=== PATIENT | female | born 1945 | race American Indian/Alaskan Native ===

== ENCOUNTER 2016-04-23 14:46 | Emergency (ER) | payer MEDICARE ==
[2016-04-23 15:17] VITALS: BP 163/79
[2016-04-23] MEDS ORDERED: DECADRON IM ONE (15:47)
[2016-04-23] MEDS ORDERED: DUONEB 0.5 MG-3 MG/3 ML SOLN IH ONE (15:47)
--- NOTE | 2016-04-23 16:56 | Emergency Department Report ---
ED General Adult HPI - General Chief complaint: Upper Respiratory Infection Stated complaint: SOB Time Seen by Provider: 04/23/16 15:47 Source: patient Mode of arrival: Ambulatory Limitations: No Limitations - History of Present Illness Initial comments: 71 year old female presents with chest congestion, tightness, cough, wheezing for about 1-2 days. states that she is taking otc medication with no relief. states that she also has sinus congestion and pressure. denies fever, sore throat abdominal pain. - Related Data Previous Rx's Medication Instructions Recorded Last Taken Type ALBUTEROL Inhaler [ProAir HFA 2 puff IH QID PRN #1 inhalation 04/23/16 Unknown Rx Inhaler] Amoxicillin/K Clav Tab [Augmentin 1 tab PO Q12HR #20 tab 04/23/16 Unknown Rx 875 mg] Benzonatate [Tessalon Perles] 100 mg PO Q8HR #20 capsule 04/23/16 Unknown Rx Allergies Allergy/AdvReac Type Severity Reaction Status Date / Time iv dye Allergy Hives Uncoded 12/29/13 16:58 ED Review of Systems ROS: Stated complaint: SOB Other details as noted in HPI Constitutional: denies: chills, fever Eyes: denies: eye pain, eye discharge, vision change ENT: congestion. denies: ear pain, throat pain Respiratory: wheezing. denies: cough, shortness of breath Cardiovascular: denies: chest pain, palpitations Endocrine: no symptoms reported Gastrointestinal: denies: abdominal pain, nausea, diarrhea Genitourinary: denies: urgency, dysuria, discharge Musculoskeletal: denies: back pain, joint swelling, arthralgia Skin: denies: rash, lesions Neurological: denies: headache, weakness, paresthesias Psychiatric: denies: anxiety, depression Hematological/Lymphatic: denies: easy bleeding, easy bruising ED Past Medical Hx - Past Medical History Previous Medical History?: Yes Hx Hypertension: Yes Hx Diabetes: Yes Additional medical history: Venous stasis disease - Surgical History Past Surgical History?: Yes Additional Surgical History: back surgery x 2. bilateral shoulder surgery - Social History Smoking Status: Former Smoker Substance Use Type: Alcohol, Prescribed - Medications Home Medications: Home Medications Medication Instructions Recorded Confirmed Last Taken Type ALBUTEROL Inhaler [ProAir HFA 2 puff IH QID PRN #1 inhalation 04/23/16 Unknown Rx Inhaler] Amoxicillin/K Clav Tab [Augmentin 1 tab PO Q12HR #20 tab 04/23/16 Unknown Rx 875 mg] Benzonatate [Tessalon Perles] 100 mg PO Q8HR #20 capsule 04/23/16 Unknown Rx ED Physical Exam - General Limitations: No Limitations General appearance: alert, in no apparent distress - Head Head exam: Present: atraumatic, normocephalic - Eye Eye exam: Present: normal appearance, other - ENT ENT exam: Present: normal orophraynx, mucous membranes moist, other (red nasal mucosa) - Neck Neck exam: Present: normal inspection - Respiratory Respiratory exam: Present: normal lung sounds bilaterally, wheezes. Absent: respiratory distress, rales, rhonchi, stridor - Cardiovascular Cardiovascular Exam: Present: regular rate, normal rhythm. Absent: systolic murmur, diastolic murmur, rubs, gallop - GI/Abdominal GI/Abdominal exam: Present: soft, normal bowel sounds - Extremities Exam Extremities exam: Present: normal inspection - Back Exam Back exam: Present: normal inspection - Neurological Exam Neurological exam: Present: alert, oriented X3 - Psychiatric Psychiatric exam: Present: normal affect, normal mood - Skin Skin exam: Present: warm, dry, intact, normal color. Absent: rash ED Course Vital Signs 04/23/16 15:13 Temperature 99.1 F Pulse Rate 74 Respiratory 20 Rate Blood Pressure 163/79 O2 Sat by Pulse 99 Oximetry ED Medical Decision Making - Medical Decision Making patient resting comfortably. states relief with medication in the ED. VSS and NAD at this time, Critical care attestation.: If time is entered above; I have spent that time in minutes in the direct care of this critically ill patient, excluding procedure time. ED Disposition Clinical Impression: Upper respiratory infection, Acute asthmatic bronchitis Disposition: DISCHARGED TO HOME OR SELFCARE Is pt being admited?: No Does the pt Need Aspirin: No Condition: Good Instructions: Chronic Bronchitis (ED), Acute Bronchitis (ED) Additional Instructions: ED General Adult HPI - General Chief complaint: Upper Respiratory Infection Stated complaint: SOB Time Seen by Provider: 04/23/16 15:47 Source: patient Mode of arrival: Ambulatory Limitations: No Limitations - History of Present Illness Initial comments: 71 year old female presents with chest congestion, tightness, cough, wheezing for about 1-2 days. states that she is taking otc medication with no relief. states that she also has sinus congestion and pressure. denies fever, sore throat abdominal pain. - Related Data Allergies Allergy/AdvReac Type Severity Reaction Status Date / Time iv dye Allergy Hives Uncoded 12/29/13 16:58 ED Review of Systems ROS: Stated complaint: SOB Other details as noted in HPI Constitutional: denies: chills, fever Eyes: denies: eye pain, eye discharge, vision change ENT: congestion. denies: ear pain, throat pain Respiratory: wheezing. denies: cough, shortness of breath Cardiovascular: denies: chest pain, palpitations Endocrine: no symptoms reported Gastrointestinal: denies: abdominal pain, nausea, diarrhea Genitourinary: denies: urgency, dysuria, discharge Musculoskeletal: denies: back pain, joint swelling, arthralgia Skin: denies: rash, lesions Neurological: denies: headache, weakness, paresthesias Psychiatric: denies: anxiety, depression Hematological/Lymphatic: denies: easy bleeding, easy bruising ED Past Medical Hx - Past Medical History Previous Medical History?: Yes Hx Hypertension: Yes Hx Diabetes: Yes Additional medical history: Venous stasis disease - Surgical History Past Surgical History?: Yes Additional Surgical History: back surgery x 2. bilateral shoulder surgery - Social History Smoking Status: Former Smoker Substance Use Type: Alcohol, Prescribed ED Physical Exam - General Limitations: No Limitations General appearance: alert, in no apparent distress - Head Head exam: Present: atraumatic, normocephalic - Eye Eye exam: Present: normal appearance, other - ENT ENT exam: Present: normal orophraynx, mucous membranes moist, other (red nasal mucosa) - Neck Neck exam: Present: normal inspection - Respiratory Respiratory exam: Present: normal lung sounds bilaterally, wheezes. Absent: respiratory distress, rales, rhonchi, stridor - Cardiovascular Cardiovascular Exam: Present: regular rate, normal rhythm. Absent: systolic murmur, diastolic murmur, rubs, gallop - GI/Abdominal GI/Abdominal exam: Present: soft, normal bowel sounds - Extremities Exam Extremities exam: Present: normal inspection - Back Exam Back exam: Present: normal inspection - Neurological Exam Neurological exam: Present: alert, oriented X3 - Psychiatric Psychiatric exam: Present: normal affect, normal mood - Skin Skin exam: Present: warm, dry, intact, normal color. Absent: rash ED Course Vital Signs 04/23/16 15:13 Temperature 99.1 F Pulse Rate 74 Respiratory 20 Rate Blood Pressure 163/79 O2 Sat by Pulse 99 Oximetry ED Medical Decision Making - Medical Decision Making patient resting comfortably. states relief with medication in the ED. VSS and NAD at this time, Critical care attestation.: If time is entered above; I have spent that time in minutes in the direct care of this critically ill patient, excluding procedure time. ED Disposition Clinical Impression: Upper respiratory infection, Acute asthmatic bronchitis Disposition: DISCHARGED TO HOME OR SELFCARE Is pt being admited?: No Does the pt Need Aspirin: No Condition: Good Instructions: Chronic Bronchitis (ED), Acute Bronchitis (ED) Referrals: PRIMARY CARE [Primary Care Provider] - 3-5 Days take medication as prescribed. Prescriptions: ALBUTEROL Inhaler [ProAir HFA Inhaler] 2 puff IH QID PRN #1 inhalation PRN Reason: Shortness Of Breath Amoxicillin/K Clav Tab [Augmentin 875 mg] 1 tab PO Q12HR #20 tab Benzonatate [Tessalon Perles] 100 mg PO Q8HR #20 capsule Referrals: PRIMARY CARE [Primary Care Provider] - 3-5 Days Forms: Work/School Release Form(ED) Time of Disposition: 17:17
== END 2016-04-23 17:25 | disposition home or self-care (01) ==
LOC: ED 14:46
DX: J06.9 Acute upper respiratory infection, unspecified (principal); J45.909 Unspecified asthma, uncomplicated; I10 Essential (primary) hypertension; E11.9 Type 2 diabetes mellitus without complications; Z87.891 Personal history of nicotine dependence; I87.8 Other specified disorders of veins; Z91.048 Other nonmedicinal substance allergy status
CPT/HCPCS: 96372; 99282; J1100

== ENCOUNTER 2017-04-26 23:23 | Emergency (ER) | payer MEDICARE ==
[2017-04-26 23:45] VITALS: BP 133/70
[2017-04-26] MEDS ORDERED: PROVENTIL IH ONE (23:46)
--- NOTE | 2017-04-27 00:17 | XRay Report ---
FINAL REPORT EXAM: XR CHEST ROUTINE 2V HISTORY: Shortness of breath TECHNIQUE: PA and lateral views of the chest were submitted. Comparison is made to the study of 04/11/2017. FINDINGS: There is chronic elevation of the right hemidiaphragm. The lungs are clear. The lungs are not congested. The heart size is normal. The skeletal structures reveal multilevel disc degeneration in the thoracic spine. IMPRESSION: No active chest disease.
[2017-04-27 00:32] LABS: Basophils # (Auto) 0.1 K/mm3 (0.0-0.1); Eosinophils # (Auto) 0.8 K/mm3 (0.0-0.4); Hematocrit 39.3 % (30.3-42.9); Hemoglobin 12.7 gm/dl (10.1-14.3); Lymphocytes # (Auto) 2.3 K/mm3 (1.2-5.4); Lymphocytes % (Auto) 27.5 % (13.4-35.0); Mean Corpuscular HGB Conc 32 % (30-34); Mean Corpuscular Volume 77 fl (79-97); Monocytes # (Auto) 0.7 K/mm3 (0.0-0.8); Monocytes % (Auto) 8.1 % (0.0-7.3); Platelet Count 303 K/mm3 (140-440); Red Cell Distribution Width 14.6 % (13.2-15.2)
[2017-04-27 00:33] LABS: Mean Corpuscular Hemoglobin 25 pg (28-32)
[2017-04-27 00:57] LABS: BUN/Creatinine Ratio 14; Blood Urea Nitrogen 13 mg/dL (7-17); Hemolysis Index 4
== END 2017-04-27 10:30 | disposition home or self-care (01) ==
LOC: ED 23:23
DX: R07.9 Chest pain, unspecified (principal); R06.02 Shortness of breath; Z53.21 Procedure and treatment not carried out due to patient leaving prior to being seen by health care provider
CPT/HCPCS: 36415; 71046; 80048; 84484; 85025; 93005; 93010

== ENCOUNTER 2017-11-11 12:06 | Emergency (ER) | payer MEDICARE ==
[2017-11-11 12:53] VITALS: BP 163/56
--- NOTE | 2017-11-11 13:57 | Emergency Department Report ---
Chief Complaint: GI Bleed Stated Complaint: BLOOD IN STOOL Time Seen by Provider: 11/11/17 13:47 - HPI History of Present Illness: 72-year-old female presents to the emergency department with complaint of some rectal bleeding. On Wednesday, 2 days ago, the patient noticed some blood on the tissue paper after having a bowel movement. There was no issues on Wednesday, yesterday, but this morning the patient had another bowel movement where she noticed a small amount of red blood on the stool itself. She has no abdominal pain, rectal pain. The patient last had a colonoscopy about [address] Leary. - SUKUMAR Review of Systems: Positive for rectal bleeding Negative for abdominal pain, rectal pain - Exam Vital Signs: Vital Signs 11/11/17 12:49 Temperature 98.7 F Pulse Rate 79 Respiratory 17 Rate Blood Pressure 163/56 O2 Sat by Pulse 98 Oximetry Physical Exam: Heart and lungs sounds are normal to auscultation. Soft abdomen. Normal bowel sounds. Patient does not appear in any acute distress. MSE screening note: Focused history and physical exam performed. Due to findings the following was ordered: I have ordered a CBC and BMP. We will do a visual inspection of the rectum. Ultimately the patient will need a outpatient referral for gastroenterology for a colonoscopy. ED Disposition for MSE Condition: Stable
[2017-11-11 14:11] LABS: Basophils # (Auto) 0.1 K/mm3 (0.0-0.1); Basophils % (Auto) 0.9 % (0.0-1.8); Eosinophils # (Auto) 0.4 K/mm3 (0.0-0.4); Eosinophils % (Auto) 5.9 % (0.0-4.3); Hematocrit 41.9 % (30.3-42.9); Hemoglobin 13.4 gm/dl (10.1-14.3); Lymphocytes # (Auto) 2.1 K/mm3 (1.2-5.4); Lymphocytes % (Auto) 28.9 % (13.4-35.0); Mean Corpuscular HGB Conc 32 % (30-34); Mean Corpuscular Volume 78 fl (79-97); Monocytes # (Auto) 0.6 K/mm3 (0.0-0.8); Monocytes % (Auto) 7.9 % (0.0-7.3); Platelet Count 292 K/mm3 (140-440); Red Blood Count 5.35 M/mm3 (3.65-5.03); Red Cell Distribution Width 14.5 % (13.2-15.2)
[2017-11-11 14:13] LABS: Mean Corpuscular Hemoglobin 25 pg (28-32)
[2017-11-11 14:28] LABS: BUN/Creatinine Ratio 15; Blood Urea Nitrogen 15 mg/dL (7-17); Calcium 9.5 mg/dL (8.4-10.2); Hemolysis Index 4
--- NOTE | 2017-11-11 14:48 | Emergency Department Report ---
ED GI Bleed HPI - General Chief complaint: GI Bleed Stated complaint: BLOOD IN STOOL Time Seen by Provider: 11/11/17 13:47 Source: patient Mode of arrival: Ambulatory Limitations: No Limitations - History of Present Illness Initial comments: This is a 72-year-old -[place] female who presents with rectal bleeding. Patient states symptoms started Wednesday morning. She noticed blood on tissue when she wiped during bowel movement. Bleeding resolved on Wednesday. This morning she noticed red streaks in stool with morning bowel movement. Patient states it is almost time for colonoscopy with Dr. Bowden and she will follow up with him. Patient denies abdominal pain, dysuria, frequency , urgency, constipation, nausea or vomiting, and diarrhea. MD complaint: blood on toilet paper, blood streaked stool Onset/Timin -: days(s) Radiation: none Severity scale (0 -10): 0 Quality: painless Improves with: none Worsens with: bowel movement Associated Symptoms: denies other symptoms Treatments Prior to Arrival: none - Related Data Previous Rx's Medication Instructions Recorded Last Taken Type ALBUTEROL Inhaler (OR & NICU) 2 puff IH QID PRN #1 inhalation 04/13/17 Unknown Rx [ProAir HFA Inhaler] Aspirin [Low Dose Aspirin EC] 81 mg PO DAILY #30 tablet.dr 04/13/17 Unknown Rx Benzonatate [Tessalon Perles] 100 mg PO Q8HR #20 capsule 04/13/17 Unknown Rx Clonidine HCl 0.3 mg PO TID #30 04/13/17 Unknown Rx Losartan [Cozaar] 100 mg PO QDAY #30 tablet 04/13/17 Unknown Rx Prednisone [predniSONE 10 mg 10 mg PO .TAPER #1 tab.ds.pk 04/13/17 Unknown Rx (6-Day Pack, 21 Tabs)] glipiZIDE XL [Glucotrol Xl] 10 mg PO QAM #30 tablet 04/13/17 Unknown Rx Hydrocortisone [Anucort-HC SUPPOS] 25 mg RC BID #14 supp.rect 11/11/17 Unknown Rx Allergies Allergy/AdvReac Type Severity Reaction Status Date / Time iv dye Allergy Hives Uncoded 11/11/17 12:53 ED Review of Systems ROS: Stated complaint: BLOOD IN STOOL Other details as noted in HPI Constitutional: denies: chills, fever Respiratory: denies: cough, shortness of breath, wheezing Cardiovascular: denies: chest pain, palpitations Gastrointestinal: hematochezia. denies: abdominal pain, nausea, diarrhea Genitourinary: denies: urgency, dysuria, discharge Neurological: denies: headache, weakness, paresthesias Psychiatric: denies: anxiety, depression ED Past Medical Hx - Past Medical History Previous Medical History?: Yes Hx Hypertension: Yes Hx Diabetes: Yes Hx COPD: Yes Hx Tuberculosis: No Hx Dementia: No Hx HIV: No Additional medical history: Venous stasis disease - Surgical History Past Surgical History?: Yes Additional Surgical History: back surgery x 2. bilateral shoulder surgery - Social History Smoking Status: Never Smoker Substance Use Type: None - Medications Home Medications: Home Medications Medication Instructions Recorded Confirmed Last Taken Type ALBUTEROL Inhaler (OR & NICU) 2 puff IH QID PRN #1 inhalation 04/13/17 Unknown Rx [ProAir HFA Inhaler] Aspirin [Low Dose Aspirin EC] 81 mg PO DAILY #30 tablet.dr 04/13/17 Unknown Rx Benzonatate [Tessalon Perles] 100 mg PO Q8HR #20 capsule 04/13/17 Unknown Rx Clonidine HCl 0.3 mg PO TID #30 04/13/17 Unknown Rx Losartan [Cozaar] 100 mg PO QDAY #30 tablet 04/13/17 Unknown Rx Prednisone [predniSONE 10 mg 10 mg PO .TAPER #1 tab.ds.pk 04/13/17 Unknown Rx (6-Day Pack, 21 Tabs)] glipiZIDE XL [Glucotrol Xl] 10 mg PO QAM #30 tablet 04/13/17 Unknown Rx Hydrocortisone [Anucort-HC SUPPOS] 25 mg RC BID #14 supp.rect 11/11/17 Unknown Rx ED Physical Exam - General Limitations: No Limitations General appearance: alert, in no apparent distress, obese - Respiratory Respiratory exam: Present: normal lung sounds bilaterally. Absent: respiratory distress - Cardiovascular Cardiovascular Exam: Present: regular rate, normal rhythm. Absent: systolic murmur, diastolic murmur, rubs, gallop - GI/Abdominal GI/Abdominal exam: Present: soft, normal bowel sounds. Absent: distended, tenderness, guarding, rebound, rigid, organomegaly, mass - Rectal Rectal exam: Present: normal rectal tone, hemorrhoids (external hemorrhoids). Absent: black stool, bloody stool, fecal impaction, mass, tenderness - Neurological Exam Neurological exam: Present: alert, oriented X3 - Psychiatric Psychiatric exam: Present: normal affect, normal mood - Skin Skin exam: Present: warm, dry, intact, normal color. Absent: rash ED Course Vital Signs 11/11/17 12:49 Temperature 98.7 F Pulse Rate 79 Respiratory 17 Rate Blood Pressure 163/56 O2 Sat by Pulse 98 Oximetry ED Medical Decision Making - Lab Data Result diagrams: 11/11/17 14:00 11/11/17 14:00 Lab Results 11/11/17 11/11/17 Range/Units 14:00 14:00 WBC 7.2 (4.5-11.0) K/mm3 RBC 5.35 H (3.65-5.03) M/mm3 Hgb 13.4 (10.1-14.3) gm/dl Hct 41.9 (30.3-42.9) % MCV 78 L (79-97) fl MCH 25 L (28-32) pg MCHC 32 (30-34) % RDW 14.5 (13.2-15.2) % Plt Count 292 (140-440) K/mm3 Lymph % (Auto) 28.9 (13.4-35.0) % [place] % (Auto) 7.9 H (0.0-7.3) % Eos % (Auto) 5.9 H (0.0-4.3) % Baso % (Auto) 0.9 (0.0-1.8) % Lymph # 2.1 (1.2-5.4) K/mm3 [place] # 0.6 (0.0-0.8) K/mm3 Eos # 0.4 (0.0-0.4) K/mm3 Baso # 0.1 (0.0-0.1) K/mm3 Seg Neutrophils % 56.4 (40.0-70.0) % Seg Neutrophils # 4.1 (1.8-7.7) K/mm3 Sodium 137 (137-145) mmol/L Potassium 3.7 (3.6-5.0) mmol/L Chloride 96.8 L (98-107) mmol/L Carbon Dioxide 30 (22-30) mmol/L Anion Gap 14 mmol/L BUN 15 (7-17) mg/dL Creatinine 1.0 (0.7-1.2) mg/dL Estimated GFR > 60 ml/min BUN/Creatinine Ratio 15 % Glucose 142 H (65-100) mg/dL Calcium 9.5 (8.4-10.2) mg/dL - Medical Decision Making Patient was examined by me and Dr. Dooley. Vitals are normal and patient is in no acute distress. Obtained a labs. All labs are unremarkable. Patient informed of results. Start anucort suppositories for hemorrhoids. Plan discussed with patient to discharge home and treat outpatient. He agrees with ER plan. Follow-up with gastroenterology Dr. Bowden for colonoscopy. Patient discharged home in stable condition. Follow up with PCP in 2-3 days. Critical care attestation.: If time is entered above; I have spent that time in minutes in the direct care of this critically ill patient, excluding procedure time. ED Disposition Clinical Impression: Hematochezia, External bleeding hemorrhoids Disposition: TO HOME OR SELFCARE Is pt being admited?: No Does the pt Need Aspirin: No Condition: Stable Instructions: Hemorrhoids (ED), Rectal Bleeding (ED) Additional Instructions: Apply suppository twice a day for 1 week. Follow up with gastroenterology in 1-2 weeks for further evaluation and colonoscopy. Follow up with your primary care provider in 2-3 days if symptoms are not improving as discussed. Prescriptions: Hydrocortisone [Anucort-HC SUPPOS] 25 mg RC BID #14 supp.rect Referrals: CANDELARIO BOWDEN MD [Staff Physician] - 3-5 Days [facility] [Provider Group] - 3-5 Days Forms: Accompanied Note Time of Disposition: 15:01 Print Language: [place]
== END 2017-11-11 15:19 | disposition home or self-care (01) ==
LOC: ED 12:06
DX: K92.1 Melena (principal); I10 Essential (primary) hypertension; E11.9 Type 2 diabetes mellitus without complications; J44.9 Chronic obstructive pulmonary disease, unspecified; Z79.82 Long term (current) use of aspirin
CPT/HCPCS: 36415; 80048; 85025; 93005; 93010; 99283

== ENCOUNTER 2018-08-06 09:10 | Emergency (ER) | payer MEDICARE ==
[2018-08-06 09:20] VITALS: BP 153/73
--- NOTE | 2018-08-06 09:37 | Emergency Department Report ---
HPI - General Chief Complaint: Shoulder Injury Time Seen by Provider: 08/06/18 09:30 - HPI HPI: 73-year-old -[place] female presents to the emergency department with a one-week history of some pain to the right shoulder, mostly along the muscle be tween the neck and shoulder joint. The pain worsens with movement of her right arm but she is able to move it without restriction. She denies any fall or any recent trauma. No numbness or paresthesias. At first, the patient thought it might be secondary to her purse, which was very heavy to her, and was resting on the right shoulder. However she took out a lot of the contents from the purse a nd she still has this discomfort. The pain also worsens when she turns her head to the right. She's been using a heating pad and some [id number] cream for her symptoms without much relief. Her primary care physician is Dr. Bowman. She has a past medical history of COPD, diabetes, hypertension and previous orthopedic back and shoulder surgery. No swelling or skin color changes. ED Past Medical Hx - Past Medical History Previous Medical History?: Yes Hx Hypertension: Yes Hx Diabetes: Yes Hx COPD: Yes Hx Tuberculosis: No Hx Dementia: No Hx HIV: No Additional medical history: Venous stasis disease - Surgical History Past Surgical History?: Yes Additional Surgical History: back surgery x 2. bilateral shoulder surgery - Social History Smoking Status: Never Smoker Substance Use Type: Prescribed - Medications Home Medications: Home Medications Medication Instructions Recorded Confirmed Last Taken Type ALBUTEROL Inhaler (OR & NICU) 2 puff IH QID PRN #1 inhalation 04/13/17 Unknown Rx [ProAir HFA Inhaler] Aspirin [Low Dose Aspirin EC] 81 mg PO DAILY #30 tablet.dr 04/13/17 Unknown Rx Benzonatate [Tessalon Perles] 100 mg PO Q8HR #20 capsule 04/13/17 Unknown Rx Clonidine HCl 0.3 mg PO TID #30 04/13/17 Unknown Rx Losartan [Cozaar] 100 mg PO QDAY #30 tablet 04/13/17 Unknown Rx Prednisone [predniSONE 10 mg 10 mg PO .TAPER #1 tab.ds.pk 04/13/17 Unknown Rx (6-Day Pack, 21 Tabs)] glipiZIDE XL [Glucotrol Xl] 10 mg PO QAM #30 tablet 04/13/17 Unknown Rx Hydrocortisone [Anucort-HC SUPPOS] 25 mg RC BID #14 supp.rect 11/11/17 Unknown Rx Cyclobenzaprine HCl [Flexeril 5 MG 5 mg PO TID PRN #10 tab 08/06/18 Unknown Rx TAB] ED Review of Systems ROS: Stated complaint: R SHOULDER/ARM/NECK PAIN Other details as noted in HPI Constitutional: denies: chills, fever Eyes: denies: eye pain, vision change ENT: denies: ear pain, throat pain Respiratory: denies: cough, shortness of breath Cardiovascular: denies: chest pain, palpitations Gastrointestinal: denies: abdominal pain, vomiting Genitourinary: denies: dysuria, discharge Musculoskeletal: arthralgia, myalgia. denies: back pain Skin: denies: rash, lesions Neurological: denies: headache, numbness, paresthesias Physical Exam - Physical Exam Vital Signs: Vital Signs 08/06/18 09:17 Temperature 98.4 F Pulse Rate 80 Respiratory 18 Rate Blood Pressure 153/73 O2 Sat by Pulse 100 Oximetry Physical Exam: GENERAL: The patient is well-developed well-nourished. HENT: Normocephalic. Atraumatic. Patient has moist mucous membranes. EYES: Extraocular motions are intact. NECK: Supple. Trachea is midline. There is some reproducible tenderness to palpation along the right lateral cervical muscles but no obvious deformity. CHEST/LUNGS: Clear to auscultation. There is no respiratory distress noted. HEART/CARDIOVASCULAR: Regular. There is no tachycardia. There is no murmur. ABDOMEN: There is no abdominal distention. SKIN: Skin is warm and dry. NEURO: The patient is awake, alert, and oriented. The patient is cooperative. The patient has no focal neurologic deficits. The patient has normal speech. MUSCULOSKELETAL: There is some reproducible tenderness to palpation along the right trapezius muscle with some taut musculature. There is no limitation range of motion. ED Course Vital Signs 08/06/18 09:17 Temperature 98.4 F Pulse Rate 80 Respiratory 18 Rate Blood Pressure 153/73 O2 Sat by Pulse 100 Oximetry ED Medical Decision Making - Radiology Data Radiology results: image reviewed interpreted by me: X-ray of the right shoulder does not show any fracture, dislocation, or any acute process. - Medical Decision Making Patient presents to the emergency department with some pain to the right shoulder, right side of the neck and upper back. She does not appear to have any pain or difficulty with range of motion at the shoulder joint itself. The main area of discomfort is a "knot" that she can feel that is over the trapezius muscle, between the shoulder and the neck. There is some taut musculature in this area consistent with a muscle spasm. She has full range of motion of the head at the neck. An x-ray was done of the right shoulder that does not show any fracture, dislocation or any acute process but does show some arthritis. The patient is neurovascularly intact. She will be given a referral to orthopedist's, a prescription for some muscle relaxer, she will add NSAIDs, she will use heat, and she will return to the ER with any worsening of her symptoms or any acute distress. - Differential Diagnosis muscle spasm, muscle strain, contusion, dislocation, tendinitis Critical Care Time: No Critical care attestation.: If time is entered above; I have spent that time in minutes in the direct care of this critically ill patient, excluding procedure time. ED Disposition Clinical Impression: Trapezius muscle spasm, Musculoskeletal pain Disposition: TO HOME OR SELFCARE Is pt being admited?: No Condition: Stable Instructions: Musculoskeletal Pain (ED), Muscle Spasm (ED) Additional Instructions: Please follow-up with your primary care physician in the next few days. Return to the emergency Department with any worsening of your symptoms or any acute distress. I am giving you a referral for a local orthopedic group to follow up with her regarding your shoulder and musculoskeletal pains. You have been prescribed a medication that is sedating and therefore should not be taken prior to driving, working, and responsible for children and in no way should be mixed with alcohol of any quantity. Prescriptions: Cyclobenzaprine HCl [Flexeril 5 MG TAB] 5 mg PO TID PRN #10 tab PRN Reason: Muscle Spasm Referrals: [facility] [Provider Group] - 3-5 Days Time of Disposition: 09:59
--- NOTE | 2018-08-06 10:14 | XRay Report ---
PROCEDURE: XR SHOULDER 2+V RT TECHNIQUE: Right shoulder radiographs, 3 views. HISTORY: right shoulder pain COMPARISONS: None currently available. FINDINGS: There is no acute fracture. There is no evidence for healing fracture. There is no acute dislocation. Mild to moderate arthritis in the AC and glenohumeral joints. Degenerative changes at the greater tub ercle. Calcification in the soft tissues. There is no cortical destruction to suggest osteomyelitis. There are no suspicious osseous lesions. There are no radiopaque foreign objects. IMPRESSION: * No acute osseous findings. * Arthritis. * Calcific tendopathy. This document is electronically signed by Andrade Sapp MD., August 06 2018 10:12:22 AM ET
== END 2018-08-06 10:05 | disposition home or self-care (01) ==
LOC: ED 09:10
DX: M62.838 Other muscle spasm (principal); M25.511 Pain in right shoulder; I10 Essential (primary) hypertension; E11.9 Type 2 diabetes mellitus without complications; J44.9 Chronic obstructive pulmonary disease, unspecified; Z79.82 Long term (current) use of aspirin; Z79.899 Other long term (current) drug therapy; Z91.041 Radiographic dye allergy status
CPT/HCPCS: 99283